=== PATIENT | female | born 1995 | race Asian ===

== ENCOUNTER 2024-07-15 10:58 | Inpatient (IN) | payer SELFPAY ==
[~2024-07-15] VITALS: Ht 154.9 cm; Wt 63.0 kg
[2024-07-15] VITALS (13 sets, daily range): BP systolic 72–96; BP diastolic 40–64; PULSE 78–135; TEMP 97.9–99.2
[~2024-07-15 10:58] MED LIST: IBU800 M1 PO; PRENATAL TABLET PO; QUALITY CHOICE1 TA7 PO; ROXICODONE 55 MG/TAB PO; TYLENOL 500MG500 MG PO
[2024-07-15] MEDS ORDERED: NS 1,000 ML IV ONE (11:30)
[2024-07-15 11:54] LABS: BILIRUBIN,TOTAL 3.5 mg/dL (0.2-1.2); CALCIUM 8.3 mg/dL (8.4-10.2); CREATININE, serum 0.75 mg/dL (0.57-1.11); POTASSIUM 3.3 mEq/L (3.5-4.5); TOTAL PROTEIN 8.4 g/dl (6.2-8.1)
[2024-07-15] MEDS ORDERED: Ketorolac 15 MG/ML VIAL IV ONE (12:15)
[2024-07-15 12:19] LABS: HEMATOCRIT 27.1 % (37.0-47.0); HEMOGLOBIN 9.5 g/dl (12.5-16.0); MEAN CELL VOLUME 85 fl (80.0-100.0); MEAN CORPUSCULAR HEMOGLOBIN 30 pg (27-31); MEAN CORPUSCULAR HGB CONC 35 g/dl (33.0-37.0); MEAN PLATELET VOLUME 11.5 fl (7.4-10.4); PLATELET COUNT 317 K/mm3 (130-400); RED BLOOD COUNT 3.19 M/mm3 (4.10-5.30); REDCELL DISTRIBUTION WIDTH-CV 15.1 % (11.5-14.5)
[2024-07-15 12:52] LABS: ANISOCYTOSIS 1+; BAND 11 % (0-10); LYMPHOCYTE 10 % (20.0-51.0); NEUTROPHILS 71 % (42.0-75.2); PLATELET ESTIMATE NORMAL (NORMAL)
[2024-07-15] MEDS ORDERED: Iohexol 300 - 100 ML VIAL IV ONE (12:52)
[2024-07-15] MEDS ORDERED: Morphine 4 MG/ML VIAL IV ONE (13:45)
[2024-07-15] MEDS ORDERED: fentaNYL 50 MCG/ML 5 ML VIAL ONE (14:51)
[2024-07-15] MEDS ORDERED: Vecuronium 10 MG VIAL IV ONE (14:51)
[2024-07-15] MEDS ORDERED: Lidocaine PF 2% (20 MG/ML) 5 ML VIAL ONE (14:52)
[2024-07-15] MEDS ORDERED: Glycopyrrolate 0.2 MG/ML 1 ML VIAL ONE (15:19)
[2024-07-15] MEDS ORDERED: Ondansetron 4 MG/2 ML VIAL ONE (15:20)
[2024-07-15] MEDS ORDERED: dexAMETHasone 10 MG/ML VIAL ONE (15:20)
[2024-07-15] MEDS ORDERED: Ketorolac 30 MG/ML VIAL ONE (16:09)
[2024-07-15] MEDS ORDERED: Ondansetron 4 MG/2 ML VIAL IV PRN ×4 (16:30→20:00)
[2024-07-15] MEDS ORDERED: Meperidine 50 MG/ML 1 ML VIAL IV PRN ×2 (16:30→19:45)
[2024-07-15] MEDS ORDERED: fentaNYL 50 MCG/ML 1 ML SYRINGE/VIAL [PACU/SDC ONLY] IV PRN ×2 (16:30→19:45)
[2024-07-15] MEDS ORDERED: HYDROmorphone 1 MG/1 ML SYRINGE [PACU/SDC ONLY] IV PRN ×2 (16:30→19:45)
[2024-07-15] MEDS ORDERED: NS 1,000 ML IV SCH ×2 (16:30→20:00)
[2024-07-15] MEDS ORDERED: LR 1,000 ML IV ONE (16:34)
[2024-07-15] MEDS ORDERED: Morphine 4 MG/ML VIAL IV PRN ×2 (17:30→20:00)
--- NOTE | 2024-07-15 18:05 | NUR ---
PT ARRIVED FROM PACU AT 1730. VITALS STABLE. INTAKE AND ASSESSMENT DONE. BULB DRAIN IS DRAINING. PT HAS BLANCO CATHETER. MED REC DONE. PT IS ON POST OPS. NO PAIN AT THIS TIME. PT SAYS SHE UNDERSTANDS [place] BUT HE HELPS OUT SOMETIMES TO TRANSLATE. NO OTHER COMPLAINTS AT THIS TIME. CALL LIGHT WITHIN REACH.
--- NOTE | 2024-07-15 19:18 | NUR ---
PT DRAIN BULB GOT VERY LARGE CLOT IN IT. BULB WAS UNABLE TO DRAIN DUE TO CLOT. ATTEMPTED TO SQUEEZE CLOT OUT AND UNABLE TO GET IT OUT. [facility] NIGHT NURSE ALSO TRIED. BLOOD COMING OUT OF SITE DUE TO NOT BEING ABLE TO DRAIN. CHARGE CALLED HOUSE TO GET NEW DRAIN. NIGHT NURSE STILL GETTING CLOTS OUT OF TUBING AND CHANING OUT DRAINS. DR HEMPHILL IS AWARE OF SITUATION. NO NEW ORDERS.
--- NOTE | 2024-07-15 19:43 | NUR ---
New bulky dressing applied to STANISLAW drain site. New bulb for proper compression. House supervisors at bedside aware of situation. Night nurse Carito, resuming cares.
--- NOTE | 2024-07-15 19:48 | NUR ---
PATIENT RESTING IN BED WITH TV ON WITH AND CHILD AT BEDSIDE WITH NO ACUTE DISTRESS NOTED. PATIENT ON ROOM AIR. NS INFUSING INTO RIGHT AC WITH NO COMPLICATIONS NOTED. STANISLAW DRAIN LEAKING BLOOD ONTO BED PAD. DRESSING REINFORCED WITH ABD PAD AND TAPE. STANISLAW EMPTIED OF 30 ML OF BLOOD. BED PAD CHANGED AND RIGHT HIP CLEANED OFF. ASSESSMENT COMPLETED AT THIS TIME. BLANCO CATH INTACT, PATENT, AND DRAINING CLEAR YELLOW URINE. PATIENT TOELRATED WELL. PATIENT DENIES ANY NEEDS AT THIS TIME. BED IN LOW POSITION WITH WHEELS LOCKED WITH RAILS UP X3 AND CALL LIGHT WITHIN REACH.
--- NOTE | 2024-07-15 21:37 | NUR ---
PATIENT C/O PAIN. IV MORPHINE GIVEN AFTER BLOOD PRESSURE CHECK. PATIENT STATES PAIN LEVEL IS 8 ON SCALE OF 0 TO 10.
--- NOTE | 2024-07-15 23:25 | NUR ---
[place] NOTIFIED PRIMARY NURSE OF MUSE OF 5. PATIENT ASSESSED WITH NO ACUTE DISTRESS NOTED EXCEPT CHANGE IN BP AND HR. DR HEMPHILL NOTIFIED AND HOUSE.
--- NOTE | 2024-07-15 23:31 | NUR ---
DR. HEMPHILL CALLED FOR PATIENT BLOOD PRESSURE OF 72/40, PULSE OF 135, RESPIRATIONS OF 14, TEMPERATURE OF 99.2, AND O2 SAT OF 98%. ORDER RECIEVED FOR 500ML FLUID BOLUS OF LR.
[2024-07-15] MEDS ORDERED: LR 500 ML IV SCH (23:45)
[2024-07-16] VITALS (22 sets, daily range): BP systolic 72–97; BP diastolic 41–61; PULSE 81–116; TEMP 97.9–99.8
--- NOTE | 2024-07-16 | NUR ---
ACCOUNTANT HELPER TAMIA UPDATED ON PATIENT CONDITION AND NEW ORDERS AT THIS TIME.
[2024-07-16 05:49] LABS: ALBUMIN 1.3 g/dL (3.5-5.0); BILIRUBIN,TOTAL 2.7 mg/dL (0.2-1.2); CALCIUM 6.9 mg/dL (8.4-10.2); CREATININE, serum 0.77 mg/dL (0.57-1.11); POTASSIUM 3.8 mEq/L (3.5-4.5); TOTAL PROTEIN 5.4 g/dl (6.2-8.1)
[2024-07-16 06:20] LABS: MEAN CELL VOLUME 84 fl (80.0-100.0); MEAN CORPUSCULAR HGB CONC 35 g/dl (33.0-37.0); MEAN PLATELET VOLUME 10.9 fl (7.4-10.4); PLATELET COUNT 412 K/mm3 (130-400); REDCELL DISTRIBUTION WIDTH-CV 14.1 % (11.5-14.5)
[2024-07-16 06:25] LABS: HEMATOCRIT 14.2 % (37.0-47.0); HEMOGLOBIN 4.9 g/dl (12.5-16.0); MEAN CORPUSCULAR HEMOGLOBIN 29 pg (27-31)
--- NOTE | 2024-07-16 06:25 | NUR ---
HOSPITALIST ATTEMPTED TO BE CALLED WITH BUSY SIGNAL. DR. HEMPHILL CALLED ABOUT PATIENT AND STATED HE WOULD BE UP TO THE FLOOR IN 15 MINUTES. PRMAIRY NURSE ATTEMPTING TO CALL LOW CRITICAL HGB OF 4.9 AND HCT OF 14.2. AT 0640 DR HEMPHILL UP AT NURSING STATION PLACING ORDERS AND PRIMARY NURSE NOTIFIED HIM OF HGB AND HCT.
--- NOTE | 2024-07-16 07:00 | NUR ---
Pt resting in bed during shift change. Lowered pt head slightly due to low BP. Pt reports having pain to her RLQ. Dressing to her drain site changed, Dr Canela at bedside. He is aware of her hemoglobin, new orders received.
[2024-07-16 07:02] LABS: BAND 12 % (0-10); EOSINOPHIL 3 % (0-4); HYPOCHROMIA 1+; LYMPHOCYTE 13 % (20.0-51.0); NEUTROPHILS 68 % (42.0-75.2); PLATELET ESTIMATE INCREASED (NORMAL)
[2024-07-16 07:03] LABS: OVALOCYTES 1+
[2024-07-16] MEDS ORDERED: oxyCODONE 5 MG TAB PO ONE (09:15)
--- NOTE | 2024-07-16 09:20 | NUR ---
Pt has antibiotics as well as order for blood. New IV started in her left forearm. Moved antibiotic to left forearm. Blood started in right AC. Educated pt on receiving blood products. Pt stated that she has no questions. Dr Moscoso in to see pt, updated her on pts temperature prior to giving blood.
--- NOTE | 2024-07-16 09:37 | NUR ---
Blood has been transfusing for 15 minutes. Pt showing no signs of reaction. Rate was started at 60ml/hr, will now increase to 130ml/hr. Pts spouse recently arrived. Updated him on pt condition and plan of care for the day.
--- NOTE | 2024-07-16 10:56 | NUR ---
IT COMMUNICATIONS SPECIALIST met with pt bedside along with her child and . Pt confirmed that she has no DPOA, and does not want to fill one out while she is at the hospital. NOK decision maker is [phone]. Pt does not speak much and the answered most of IT COMMUNICATIONS SPECIALIST questions. Pt has no insurance and no PCP. Utilizes [facility] for medication needs. expressed concerns for the financial obligation of this hospital stay and is really interested in a call from our financial counselors. IT COMMUNICATIONS SPECIALIST sent email for them to follow up. reports that he is a [employer] student and receives housing from [employer]. declines any resource needs besides financial concerns from hospitalization. Pt reports that she was completely independent prior to hospitalization and does not utilize and DME or assistive devices at home. D/C: home with spouse
--- NOTE | 2024-07-16 13:15 | NUR ---
1st unit of blood recently finished. Pt tolerated with no complaints. Pt spouse remains at bedside. Explained 2nd unit of blood will require a blood warmer. All questions answered at this time
--- NOTE | 2024-07-16 14:19 | NUR ---
Pt resting in bed at this time, spouse at bedside. Warmer being used on the 2nd unit of blood at this time. Educated pt on signs of reaction. Pt showing no signs at this time
[2024-07-16 17:44] LABS: HEMATOCRIT 17.3 % (37.0-47.0)
--- NOTE | 2024-07-16 17:47 | NUR ---
Notified Dr Moscoso of pt lab work results, no new orders
--- NOTE | 2024-07-16 17:57 | NUR ---
Pt doing okay at this time. PRN pain medication working for her. Drsg applied to RLQ drain site is still CDI. No output noted from STANISLAW drain, drain remains to bulb suction. There is a clot in the drain itself, tubing does not appear to be clotted. Pt is tolerating clear liquids
[2024-07-17] VITALS (13 sets, daily range): BP systolic 84–107; BP diastolic 48–73; PULSE 82–110; TEMP 97.7–102.1
[2024-07-17 06:10] LABS: ALBUMIN 1.4 g/dL (3.5-5.0); BILIRUBIN,TOTAL 1.9 mg/dL (0.2-1.2); CALCIUM 7.2 mg/dL (8.4-10.2); CREATININE, serum 0.59 mg/dL (0.57-1.11); POTASSIUM 3.9 mEq/L (3.5-4.5); TOTAL PROTEIN 5.8 g/dl (6.2-8.1)
[2024-07-17 06:35] LABS: HEMATOCRIT 24.9 % (37.0-47.0); HEMOGLOBIN 8.6 g/dl (12.5-16.0); MEAN CELL VOLUME 80 fl (80.0-100.0); MEAN CORPUSCULAR HEMOGLOBIN 28 pg (27-31); MEAN CORPUSCULAR HGB CONC 35 g/dl (33.0-37.0); MEAN PLATELET VOLUME 10.4 fl (7.4-10.4); PLATELET COUNT 409 K/mm3 (130-400); REDCELL DISTRIBUTION WIDTH-CV 16.3 % (11.5-14.5)
--- NOTE | 2024-07-17 07:01 | NUR ---
VSS, AFEBRILE TONIGHT, NO C/O PAIN IN ABDOMEN, MINIMAL DK RED BLOOD IN STANISLAW DRAIN, TOLERATING CLEARS W/O N/V. BLANCO PATENT/SECURE. ORDER REC'D TO DC THIS AM. REPORT GIVEN TO SARA LANDRUM AND CROWN CERAMIST
--- NOTE | 2024-07-17 07:30 | NUR ---
Notified respiratory of IS order
[2024-07-17 07:32] LABS: BAND 19 % (0-10); LYMPHOCYTE 10 % (20.0-51.0); NEUTROPHILS 69 % (42.0-75.2)
[2024-07-17 07:33] LABS: ANISOCYTOSIS 1+; PLATELET ESTIMATE INCREASED (NORMAL)
--- NOTE | 2024-07-17 08:15 | NUR ---
Pt having some complaints of feeling short of breath. vital signs within her limits, notified Dr Mocsoso, new orders received
[2024-07-17] MEDS ORDERED: Influenza Virus Vaccine, Trivalent '24-25 0.5 ML SYRINGE IM SCH (09:00)
--- NOTE | 2024-07-17 10:07 | NUR ---
Pt was up recently to the commode, she did have loose stool. Pt also had a chest xray done, Dr Moscoso aware of the results and has talked with the pt regarding this. I also called and updated her as there is an order for a thoracentesis. I did print out education on this for her and did give it to her. PRN pain medication was given, pt reports that it is helping
[2024-07-17] MEDS ORDERED: Iron Sucrose 200 MG in NS 100 ML Over 15 minutes IV SCH (10:30)
--- NOTE | 2024-07-17 10:48 | NUR ---
Inial visit: Patient appeared somewhat uncomforable with Translational Specialist until Translational Specialist introdced herself and mentioned that she sees all patients one time and if they have their own catholic lets them know how glad it is we have them with us and our wonderful 's and Staff. Translational Specialist wished Sander "Blessings" and let her know Translational Specialist is always available for patients and families.
[2024-07-17 12:10] LABS: INR 2.4 (0.8-3.0); PROTHROMBIN TIME 25.8 SECONDS (9.7-12.8)
--- NOTE | 2024-07-17 12:36 | NUR ---
Received call from ultrasound that the thoracentesis is being cancelled. Dr Moscoso notified
--- NOTE | 2024-07-17 15:00 | NUR ---
Pt doing okay this afternoon. Spouse has been at her bedside all day. Assisted pt up to the restroom, she does well with standby assist, moving slowly. Pt has voided without difficulty. She is tolerating general diet slowy. Spouse brought food in from home.
--- NOTE | 2024-07-17 15:17 | NUR ---
Marriage Therapist met with patient to provide [facility] Resource. SW advised they could schedule a follow up at time of discharge if she wishes. Patient wanted to review the information sheet, which SW provided.
--- NOTE | 2024-07-17 17:39 | NUR ---
Pt resting in bed. Dr Canela in to see pt. Dr Canela did pull her STANISLAW drain. Pt tolerated well. Site covered with gauze.
--- NOTE | 2024-07-17 19:58 | NUR ---
Fatoumata DEVI APRN CONTACTED REGARDING THE PTS TEMP OF 102.1 AND MARGINAL BP. PTS BPs HAVE BEEN IN THE 80-90 SYSTOLIC RANGE. NEW ORDERS RECEIVED. WILL MONITOR.
[2024-07-17] MEDS ORDERED: Acetaminophen 325 MG TAB PO PRN (20:00)
[2024-07-17 21:06] LABS: MEAN CORPUSCULAR HGB CONC 37 g/dl (33.0-37.0); MEAN PLATELET VOLUME 9.9 fl (7.4-10.4); PLATELET COUNT 463 K/mm3 (130-400); RED BLOOD COUNT 2.67 M/mm3 (4.10-5.30); REDCELL DISTRIBUTION WIDTH-CV 20.7 % (11.5-14.5)
[2024-07-17 21:24] LABS: ALBUMIN 1.6 g/dL (3.5-5.0); BILIRUBIN,TOTAL 1.6 mg/dL (0.2-1.2); CALCIUM 7.4 mg/dL (8.4-10.2); CREATININE, serum 0.7 mg/dL (0.57-1.11); POTASSIUM 3.7 mEq/L (3.5-4.5); TOTAL PROTEIN 5.8 g/dl (6.2-8.1)
[2024-07-17 21:27] LABS: HEMATOCRIT 23.4 % (37.0-47.0); HEMOGLOBIN 8.6 g/dl (12.5-16.0); MEAN CELL VOLUME 88 fl (80.0-100.0); MEAN CORPUSCULAR HEMOGLOBIN 32 pg (27-31)
[2024-07-17 21:42] LABS: ANISOCYTOSIS 1+; BAND 1 % (0-10); LYMPHOCYTE 11 % (20.0-51.0); NEUTROPHILS 85 % (42.0-75.2); NUCLEATED RED BLOOD CELL 2 (0-6); PLATELET ESTIMATE INCREASED (NORMAL)
[2024-07-18] VITALS (11 sets, daily range): BP systolic 96–107; BP diastolic 59–72; PULSE 85–108; TEMP 98.4–100.6
[2024-07-18 07:19] LABS: ALBUMIN 1.7 g/dL (3.5-5.0); BILIRUBIN,TOTAL 1.8 mg/dL (0.2-1.2); CALCIUM 7.6 mg/dL (8.4-10.2); CREATININE, serum 0.71 mg/dL (0.57-1.11); POTASSIUM 3.7 mEq/L (3.5-4.5); TOTAL PROTEIN 6.2 g/dl (6.2-8.1)
[2024-07-18 07:46] LABS: MEAN CORPUSCULAR HGB CONC 35 g/dl (33.0-37.0); MEAN PLATELET VOLUME 10.1 fl (7.4-10.4); PLATELET COUNT 506 K/mm3 (130-400); RED BLOOD COUNT 3.27 M/mm3 (4.10-5.30); REDCELL DISTRIBUTION WIDTH-CV 17.1 % (11.5-14.5)
[2024-07-18 07:47] LABS: HEMATOCRIT 26.9 % (37.0-47.0); HEMOGLOBIN 9.4 g/dl (12.5-16.0); MEAN CELL VOLUME 82 fl (80.0-100.0); MEAN CORPUSCULAR HEMOGLOBIN 29 pg (27-31)
--- NOTE | 2024-07-18 07:57 | NUR ---
Pt resting in bed during shift change. Pt reports the pain medication she got recently did help and she is feeling better. PT reports that she feels constipated, she did have a large loose stool yesterday. She did get some prune juice. Pt is now up walking in the halls with student nurse
[2024-07-18 08:10] LABS: BAND 20 % (0-10); LYMPHOCYTE 24 % (20.0-51.0); METAMYELOCYTE 3 % (0-0); MYELOCYTE 2 % (0-0); NEUTROPHILS 39 % (42.0-75.2); NUCLEATED RED BLOOD CELL 1 (0-6); PLATELET ESTIMATE INCREASED (NORMAL)
--- NOTE | 2024-07-18 08:55 | NUR ---
Dressing to LLQ changed. Site without redness, edges aprrox. intact. Serous red tinged drainage saturating 1/3 of dressing. 4x4 dressing with 3m Tegaderm placed. Patient reports no pain and tolerated procedure well.
[2024-07-18] MEDS ORDERED: Influenza Virus Vaccine, Trivalent '24-25 0.5 ML SYRINGE IM SCH (09:00)
[2024-07-18 09:05] LABS: INR 1.5 (0.8-3.0); PROTHROMBIN TIME 16.6 SECONDS (9.7-12.8)
--- NOTE | 2024-07-18 11:42 | NUR ---
Pt doing okay at this time. Spouse arrived mid morning. He did bring her some food which she did eat. Pt was up to the restroom and did have large loose bowel movement. Reports pain is tolerable at this time but that she still has a hard time taking deep breaths
--- NOTE | 2024-07-18 13:51 | NUR ---
BEDSIDE SHIFT REPORT RECIEVED AT THIS TIME. PT IN BATHROOM. RADIOLOGY IN ROOM TO TAKE PT TO PROCEDURE. NO NEEDS AT THIS TIME.
--- NOTE | 2024-07-18 14:53 | NUR ---
SHIFT ASSESSMENT COMPLETED AT THIS TIME. PT A &OX4. PT DENIES PAIN BUT APPEARS UNCOMFORTABLE. ULTRASOUND REPORTED VIA PHONE THERE WAS NO THORENCENTESIS COMPLETED THE PATIENT DID NOT HAVE ENOUGH FLUID. AT BEDSIDE. PT RESTING IN BED AT THIS TIME. PT COMPLAINS OF SOB BUT DENIES NAUSEA AT THIS TIME. CALL LIGHT WITHIN REACH. NO FURTHER NEEDS AT THIS TIME.
--- NOTE | 2024-07-18 22:55 | NUR ---
patient lying in bed, denies chest pain and shortness of breath. IVs in RAC and LW patent, sites CDI. x2 lap sites on ABD with gauze CDI. ambulating with steady gait. pain in ABD rated 7/10, per request norco given. upon reassessment, pt stated "feeling much better", resting in bed. call light within reach. pt has no further needs, questions or concerns at this time.
[2024-07-19] VITALS (11 sets, daily range): BP systolic 90–114; BP diastolic 62–71; PULSE 94–125; TEMP 97.5–100
[2024-07-19 07:29] LABS: URINE APPEARANCE CLEAR (CLEAR/HAZY); URINE BLOOD TRACE (NEGATIVE); URINE COLOR YELLOW (YELLOW); URINE GLUCOSE NEGATIVE (NEGATIVE); URINE KETONE NEGATIVE (NEGATIVE); URINE NITRATE NEGATIVE (NEGATIVE); URINE PROTEIN(semi-quant) TRACE (NEGATIVE); URINE UROBILINOGEN 0.2 E.U/dL (0.2-1.0)
[2024-07-19 07:41] LABS: INR 1.4 (0.8-3.0)
[2024-07-19 07:42] LABS: ALBUMIN 1.7 g/dL (3.5-5.0); BILIRUBIN,TOTAL 1.6 mg/dL (0.2-1.2); CREATININE, serum 0.64 mg/dL (0.57-1.11); MAGNESIUM 1.9 mg/dL (1.6-2.6); POTASSIUM 3.6 mEq/L (3.5-4.5); TOTAL PROTEIN 6.7 g/dl (6.2-8.1)
[2024-07-19 07:47] LABS: MEAN CELL VOLUME 86 fl (80.0-100.0); MEAN CORPUSCULAR HGB CONC 33 g/dl (33.0-37.0); MEAN PLATELET VOLUME 9.7 fl (7.4-10.4); PLATELET COUNT 542 K/mm3 (130-400); RED BLOOD COUNT 3.01 M/mm3 (4.10-5.30); REDCELL DISTRIBUTION WIDTH-CV 17.8 % (11.5-14.5)
[2024-07-19 07:49] LABS: HEMATOCRIT 25.8 % (37.0-47.0); HEMOGLOBIN 8.4 g/dl (12.5-16.0); MEAN CORPUSCULAR HEMOGLOBIN 28 pg (27-31)
[2024-07-19 07:55] LABS: COLLECTION METHOD CLEAN CATCH
--- NOTE | 2024-07-19 08:17 | NUR ---
LAB CALLED FOR CRITICAL VALUE OF WBC 20.4. DR RAMSEY NOTIFIED.
--- NOTE | 2024-07-19 08:18 | NUR ---
PATIENT RESTING IN BED. ALERT AND ORIENTED. LAP SITES TO ABD CDI. DRAIN SITE CDI. PATIENT DENIES PAIN OR DISCOMFORT. THIS RN TOLD PATIENT SHE IS ABLE TO SHOWER. PATIENT SAYS SHE WANTS TO WAIT FOR TO GET HERE. THIS RN EDUCATED PATIENT TO USE IS AT LEAST 5 TIMES PER HOUR. PATIENT AGREES. DENIES FURTHER NEEDS OR CONCERNS AT THIS TIME. CALL LIGHT WITHIN REACH.
[2024-07-19 08:33] LABS: ANISOCYTOSIS 1+; BASOPHIL 1 % (0-2); EOSINOPHIL 2 % (0-4); LYMPHOCYTE 10 % (20.0-51.0); METAMYELOCYTE 2 % (0-0); MYELOCYTE 3 % (0-0); NEUTROPHILS 72 % (42.0-75.2); PLATELET ESTIMATE INCREASED (NORMAL)
[2024-07-19 08:34] LABS: BAND 6 % (0-10); HYPOCHROMIA 1+
[2024-07-19] MEDS ORDERED: Influenza Virus Vaccine, Trivalent '24-25 0.5 ML SYRINGE IM SCH (09:00)
--- NOTE | 2024-07-19 11:48 | NUR ---
THIS RN WENT TO CHECK ON PATIENT. PATIENT IS TEARFUL AND AT BEDSIDE. ASKS "WHEN WILL THIS LUNG THING GET BETTER." THIS RN EXPLAINED TO AND PATIENT THAT DEEP BREATHING AND USE OF IS WILL HELP IMPROVE HER BREATHING. RN VERIFIED THAT PATIENT USING CORRECT TECHNIQUE FOR IS. VSS. PATIENT'S O2 IS AT 97% ON ROOM AIR. DENIES FURTHER NEEDS OR CONCERNS AT THIS TIME.
[2024-07-19] MEDS ORDERED: Meropenem 500 MG in Water For Injection,Sterile 10 ML IV SCH (13:00)
--- NOTE | 2024-07-19 14:56 | NUR ---
PATIENT JUST TOOK A SHOWER. PATIENT STATES SHE IS FEELING BETTER AFTER A SHOWER. THIS RN CHANGED OLD DRAIN DRESSING WITH GAUZE AND TEGADERM. THIS RN REMOVED BANDAIDS TO X2 LAP SITES. CDI. NO REDNESS, DRAINAGE, OR EDEMA NOTED.
--- NOTE | 2024-07-19 15:59 | NUR ---
Corporate Vp [employer]vertising [employer] attended clinical rounds with the team and Hospitalist told patient she may be ready for discharge over the next couple days. SW spoke with RN who advised patient has been up walking and took a walk around the nurses station today.
--- NOTE | 2024-07-19 16:38 | NUR ---
PATIENT AMBULATED THE CARPENTER WITH PCT THIS AFTERNOON.
--- NOTE | 2024-07-19 22:40 | NUR ---
patient lying in bed, alert and oriented x4. denies chest pain, reports feeling short of breath with occasional frothy clear sputum production. reports pain rated 9/10 in ABD, temp elevated norco/acetaminaphen given. upon reassessment temp improved, and pt resting in bed with eyes closed. with reeducation, pt using IS. x2 lap sites on ABD open to air, removed drain site with gauze dressing, all sites CDI. IVs in RAC and LW are patent, sites CDI. ambulating with steady gait. call light within reach. pt has no further needs, questions or concerns at this time.
[2024-07-20] VITALS (13 sets, daily range): BP systolic 89–105; BP diastolic 50–72; PULSE 90–109; TEMP 98.1–99.6
[2024-07-20 06:16] LABS: MEAN CORPUSCULAR HGB CONC 36 g/dl (33.0-37.0); MEAN PLATELET VOLUME 9.5 fl (7.4-10.4); PLATELET COUNT 538 K/mm3 (130-400); RED BLOOD COUNT 2.47 M/mm3 (4.10-5.30); REDCELL DISTRIBUTION WIDTH-CV 19.6 % (11.5-14.5)
[2024-07-20 06:18] LABS: HEMATOCRIT 22.4 % (37.0-47.0); MEAN CELL VOLUME 91 fl (80.0-100.0); MEAN CORPUSCULAR HEMOGLOBIN 32 pg (27-31)
--- NOTE | 2024-07-20 07:17 | NUR ---
Report received form SARA Cee. Reviewed overnight events and labs. Pt resting in bed with eyes closed. Call light within reach. Will continue with POC.
[2024-07-20 07:51] LABS: BAND 15 % (0-10); EOSINOPHIL 1 % (0-4); LYMPHOCYTE 17 % (20.0-51.0); METAMYELOCYTE 1 % (0-0); NEUTROPHILS 60 % (42.0-75.2); PLATELET ESTIMATE INCREASED (NORMAL)
[2024-07-20 07:52] LABS: ANISOCYTOSIS 2+
--- NOTE | 2024-07-20 14:03 | NUR ---
Nurse attended clinical rounds with the team and patient will need outpatient IV antibiotics through [facility]. Patient is self pay and a financial assistance application has been completed with [employer] Financial Counselor. SW followed up with patient's who advised he would be able to transport her here daily. FRANDY contacted the [facility] to give them a heads up for referral. Awaiting final ID recommendations before discharge.
--- NOTE | 2024-07-20 17:16 | NUR ---
Pt ambulated lap around surgical unit. Pt tolerated well and was stable on feet.
--- NOTE | 2024-07-20 20:11 | NUR ---
Patient assessed at this time, see shift assessment, reports minimal pain at this time, PS of 3-4, denies the need for pain meds, reminded to call whenever pain increases, encouraged to use IS and emphasized the importance of such, INT to RAC and left hand infusing well, dressing to right side of abdomen clean, dry and intact, denies further needs, call light and personal items within reach, will continue to monitor.
--- NOTE | 2024-07-20 21:30 | NUR ---
Was informed by the tech that patient's SBP is 89, denies dizziness, pt reports she's been running low, will continue to monitor.
--- NOTE | 2024-07-20 22:29 | NUR ---
Patient reports pain to abdomen, didn't rate the pain, medicated with tylenol.
--- NOTE | 2024-07-20 23:05 | NUR ---
Patient reports relief from pain, denies further needs, received a call from patient's and updated him.
[2024-07-21] VITALS (22 sets, daily range): BP systolic 85–135; BP diastolic 31–88; PULSE 84–115; TEMP 97.9–99.4
--- NOTE | 2024-07-21 | NUR ---
Patient ambulated the hallway at this time, denies further needs.
[2024-07-21 07:21] LABS: MEAN CELL VOLUME 89 fl (80.0-100.0); MEAN CORPUSCULAR HGB CONC 35 g/dl (33.0-37.0); MEAN PLATELET VOLUME 9.5 fl (7.4-10.4); RED BLOOD COUNT 2.91 M/mm3 (4.10-5.30)
[2024-07-21 07:23] LABS: MEAN CORPUSCULAR HEMOGLOBIN 31 pg (27-31); PLATELET COUNT 647 K/mm3 (130-400)
[2024-07-21 08:28] LABS: BAND 10 % (0-10); EOSINOPHIL 2 % (0-4); LYMPHOCYTE 19 % (20.0-51.0); NEUTROPHILS 64 % (42.0-75.2); NUCLEATED RED BLOOD CELL 3 (0-6); PLATELET ESTIMATE INCREASED (NORMAL)
[2024-07-21 08:29] LABS: ANISOCYTOSIS 2+
[2024-07-21] MEDS ORDERED: Influenza Virus Vaccine, Trivalent '24-25 0.5 ML SYRINGE IM SCH (09:00)
--- NOTE | 2024-07-21 10:26 | NUR ---
pt is a&ox4 sitting up in recliner, and son at bedside. vss. pt had a shower and reports feeling better. she is rating her pain in the abdomen an 8/10, pain medication given. flu vaccine administered into right deltoid, information sheet given to patient. gauze dressing to RLQ is cdi. radiology techs in to take patient down for CT scan. INT to right ac and left hand are patent. pt denies needs at this time. call light in reach.
[2024-07-21] MEDS ORDERED: NS 100 ML IV SCH (10:31)
[2024-07-21] MEDS ORDERED: Iohexol 300 - 100 ML VIAL IV ONE (10:31)
[2024-07-21 12:54] LABS: INR 1.3 (0.8-3.0)
[2024-07-21] MEDS ORDERED: NS 1,000 ML IV ONE (13:15)
--- NOTE | 2024-07-21 13:43 | NUR ---
Legal Document Assistant attended clinical rounds with the team and patient is not medically cleared for discharge at this time.
--- NOTE | 2024-07-21 13:45 | NUR ---
PT TO CT SCANNER VIA W/C, POSITIONED ON CART, OBSERVE CONTACT ISOLATION.
[2024-07-21] MEDS ORDERED: fentaNYL 50 MCG/ML 2 ML VIAL IV SCH (14:00)
[2024-07-21] MEDS ORDERED: Midazolam 2 MG/2 ML VIAL IV SCH (14:00)
--- NOTE | 2024-07-21 14:00 | NUR ---
PROCEDURE STARTED, 1MG IV VERSED GIVEN OVER 3 MIN, AND 50MCG FENTANYL GIVEN SLOWLY OVER 3 MIN. PT REMAINS AWAKE, TALKS WITH NURSE,
--- NOTE | 2024-07-21 14:05 | NUR ---
1-2CC OF CLEAR LIGHT RED FLUID PUT IN STERILE CONTAINER FROM , NO DISCOLARTION OR ODOR OR PUS NOTICED, SENT TO LAB, BAND AID PLACED OVER SITE ON BUTTOCKS AREA
--- NOTE | 2024-07-21 14:10 | NUR ---
REPORT CALLED TO SHARON RUIZ ON 3RD FLOOR, PT TAKEN TO ROOM VIA W/C, NO C/O DIZZINESS, GAIT STEADY.
[2024-07-21] MEDS ORDERED: 1/2 NS 1,000 ML IV SCH (16:45)
--- NOTE | 2024-07-21 18:15 | NUR ---
Patient sitting up in bed, at the bedside. A&Ox4. VSS. IV CDI, fluids infusing. Contact precautions in place. Call light within reach
--- NOTE | 2024-07-21 19:56 | NUR ---
Patient resting in bed, reports pain to abdomen PS of 9/10, will give Napoleon, noted band aid dressing to left butt cheek area, clean, dry and intact, IV infusing well on left antecubital, denies n/v, denies further needs, call light and personal items within reach, independent on her room, will continue to monitor.
--- NOTE | 2024-07-21 23:56 | NUR ---
Patiet awake at this time, reports pain is better from 9 down to 4/10 at this time, denies further needs, will continue to monitor.
[2024-07-22] VITALS (12 sets, daily range): BP systolic 99–126; BP diastolic 53–62; PULSE 85–109; TEMP 98.3–99.5
[2024-07-22 06:38] LABS: CALCIUM 8.1 mg/dL (8.4-10.2); CREATININE, serum 0.64 mg/dL (0.57-1.11); POTASSIUM 4.6 mEq/L (3.5-4.5)
--- NOTE | 2024-07-22 08:00 | NUR ---
PAtient sitting up in bed, A&Ox4. Overall, looks better from the previous day. VSS. IV CDI, fluids infusing. Reports pain in abdomen. Pain medication given when requested. Contact precautions in place. Call light within reach
[2024-07-22 08:18] LABS: MEAN CELL VOLUME 90 fl (80.0-100.0); MEAN CORPUSCULAR HGB CONC 32 g/dl (33.0-37.0); PLATELET COUNT 609 K/mm3 (130-400); RED BLOOD COUNT 2.91 M/mm3 (4.10-5.30); REDCELL DISTRIBUTION WIDTH-CV 18.6 % (11.5-14.5)
[2024-07-22 08:23] LABS: HEMATOCRIT 26.1 % (37.0-47.0); HEMOGLOBIN 8.4 g/dl (12.5-16.0); MEAN CORPUSCULAR HEMOGLOBIN 29 pg (27-31)
[2024-07-22 09:27] LABS: BAND 6 % (0-10); EOSINOPHIL 1 % (0-4); LYMPHOCYTE 22 % (20.0-51.0); NEUTROPHILS 66 % (42.0-75.2)
[2024-07-22 09:28] LABS: ANISOCYTOSIS 1+; PLATELET ESTIMATE INCREASED (NORMAL)
[2024-07-22] MEDS ORDERED: LR 1,000 ML IV SCH (10:00)
--- NOTE | 2024-07-22 19:27 | NUR ---
Patient reports abdominal pain at this time, medicated with [place], assessed at this time, has been passing gas, denies any other concerns, call light and personal items within reach, will continue to monitor.
--- NOTE | 2024-07-22 21:44 | NUR ---
Patient reports pain is better, PS of 5/10, denies further needs or concerns.
[2024-07-23] VITALS (12 sets, daily range): BP systolic 99–109; BP diastolic 58–66; PULSE 91–107; TEMP 98.1–99
[2024-07-23 06:49] LABS: MEAN CELL VOLUME 89 fl (80.0-100.0); MEAN CORPUSCULAR HGB CONC 32 g/dl (33.0-37.0); RED BLOOD COUNT 3.05 M/mm3 (4.10-5.30); REDCELL DISTRIBUTION WIDTH-CV 18.3 % (11.5-14.5)
[2024-07-23 06:58] LABS: INR 1.2 (0.8-3.0); PROTHROMBIN TIME 13.4 SECONDS (9.7-12.8)
[2024-07-23 07:02] LABS: HEMOGLOBIN 8.7 g/dl (12.5-16.0); MEAN CORPUSCULAR HEMOGLOBIN 29 pg (27-31); MEAN PLATELET VOLUME 9.7 fl (7.4-10.4); PLATELET COUNT 485 K/mm3 (130-400)
[2024-07-23 07:06] LABS: BILIRUBIN,TOTAL 1.1 mg/dL (0.2-1.2); CALCIUM 9.1 mg/dL (8.4-10.2); CREATININE, serum 0.63 mg/dL (0.57-1.11); MAGNESIUM 1.9 mg/dL (1.6-2.6); POTASSIUM 4.2 mEq/L (3.5-4.5); TOTAL PROTEIN 7.7 g/dl (6.2-8.1)
[2024-07-23 07:50] LABS: ANISOCYTOSIS 3+; BAND 5 % (0-10); HYPOCHROMIA 1+; LYMPHOCYTE 21 % (20.0-51.0); NEUTROPHILS 71 % (42.0-75.2)
--- NOTE | 2024-07-23 08:00 | NUR ---
PAtient laying in bed sleeping, easily awakened with verbal command. A&Ox4. VSS. IV CDI, fluids infusing. Reports pain in ABD. Pain medication given when requested. Contact precautions in place. Call light within
--- NOTE | 2024-07-23 20:00 | NUR ---
PATIENT IS A&O. LINCOL[place] IS HER 2ND LANGUAGE BUT SEEMS TO COMMUNICATE AND SPEAK BRAZILIAN ENOUGH TO LET HER NEEDS KNOWN. VSS. REPORTS MINIMAL PAIN AND REFUSES PAIN MEDS AT THIS TIME. ABD IS ROUNDED, SOFT & NOTED POSITIVE BOWL SOUNDS. TOLERATING GENERAL DIET. NO C/O N/V. IV FLUIDS INFUSING VIA PUMP INTO LEFT AC IV. HS MEDS GIVEN. HEAD TO TOE ASSESSMENT COMPLETE. CONTACT ISOLATION INPLACE. PLAN IS TO GET A PICC LINE PLACED TOMORROW AND DISCHARGE HOME ON ABX. NO OTHER NEEDS AT THIS TIME. INDEPENDENT IN ROOM. CALL LIGHT IN REACH.
[2024-07-24] VITALS (7 sets, daily range): BP systolic 104–107; BP diastolic 57–59; PULSE 90–100; TEMP 98.1–99.7
--- NOTE | 2024-07-24 09:32 | NUR ---
Pt doing okay this morning, she states that she does not need pain medication at this time. Pt tolerating diet, spouse brought in food for her. Pt is aware that she will be having a PICC line placed today. She is getting around independently without difficulty.
--- NOTE | 2024-07-24 09:57 | NUR ---
FRANDY attended clinical rounds. Patient stable for discharge to home today. Dr. Church discussing need for follow up with PCP after discharge. Patient is self pay, has FAA completed. Per documentation, patient's is requesting appointment with [facility] for follow up. UC notified to make appointment with [facility]. asking Dr. Church about getting an appointment with [facility] for second opinion. Dr. Church informed them to make appointment with [facility] after having PCP follow up locally. FRANDY Obrien contacted [facility] to notify of discharge for OP IV antibiotics. Discharge plan: Home with IV Abx
--- NOTE | 2024-07-24 09:57 | NUR ---
Pt rang, stating having increase in pain, PRN medication given. Dr Church has rounded. Discussed discharge and answered all questions
[2024-07-24] MEDS ORDERED: INVANZ INJ1 G/VIAL IV (10:27)
[2024-07-24] MEDS ORDERED: NORCO 325 MG-51 TAB PO (10:43)
--- NOTE | 2024-07-24 11:23 | NUR ---
health outreach worker was notified patient will be ready for discharge today and will need IV antibiotics established at the [facility]. FRANDY was notified patient's IV antibiotics were being switched as they were currently every 6 hours. FRANDY was notified patient's IV antibiotic will be Invanz once a day at the [facility] due to patient being self-pay. FRANDY faxed express unit the requested information for patient's IV antibiotics. FRANDY contacted express unit and scheduled patient to start her IV antibiotics tomorrow at 8 am in the express unit. FRANDY notified community health nurse supervisor for patient's discharge orders. FRANDY Fox will send financial application once received from [employer] financial counselor, to the express unit for her services there. Discharge plan: Home with IV antibiotics at [facility]
--- NOTE | 2024-07-24 12:28 | NUR ---
Anastasiia CARDENAS has been in room to place PICC line. Once line is placed, will give antibiotic
--- NOTE | 2024-07-24 13:29 | NUR ---
PICC line placed. Anastasiia with AIVS discussed with pts . IV antibiotic started. Discussed discharge education with pt and spouse to include coming in to express unit daily at 0800 for antibiotic as well as follow up appointments
--- NOTE | 2024-07-24 14:21 | NUR ---
Reviewed discharge instructions with pt and spouse in detail. Went over all paperwork to include the follow up appointments, prescription and coming in to [facility] for follow up appointment. Informed them PICC line care would be done in Express unit as well as lab work. INT removed from left AC. Informed pt that she can get dressed any time and then to notify nursing when she is ready to go so that she can be taken out in wheelchair.
--- NOTE | 2024-07-24 15:53 | NUR ---
Pt escorted out at this time
[2024-07-25] MEDS ORDERED: TYLENOL 325MG325 MG PO (09:50)
== END 2024-07-24 15:53 | disposition home or self-care (01) | DRG 853 ==
LOC: COL.ER 10:58 → SURG 14:14 → COL.ER 14:45 → SURG 07-24 15:53
PROVIDERS: Internal Medicine; Nurse Practitioner Family; Physician Assistant; Surgery; ADMIT Internal Medicine
PROC: 0W9G4ZZ Drainage of Peritoneal Cavity, Percutaneous Endoscopic Approach (ICD-10-PCS; 2024-07-15)
PROC: 02HV33Z Insertion of Infusion Device into Superior Vena Cava, Percutaneous Approach (ICD-10-PCS; 2024-07-15)
PROC: 0DTJ4ZZ Resection of Appendix, Percutaneous Endoscopic Approach (ICD-10-PCS; principal; 2024-07-15 15:30)
DX: A41.51 Sepsis due to Escherichia coli [E. coli] (principal); K35.33 Acute appendicitis with perforation, localized peritonitis, and gangrene, with abscess; J90 Pleural effusion, not elsewhere classified; D62 Acute posthemorrhagic anemia; D68.9 Coagulation defect, unspecified; K75.9 Inflammatory liver disease, unspecified
CPT/HCPCS: A4314; A9284; C1751; C1769; C1892; J1100; J1335; J1756; J1885; J2185; J2250; J2270; J2405; J2543; J2704; J3010; J7030; J7120; P9016; Q3014; Q9967